=== PATIENT | male | born 1990 | race African-American/Black ===

== ENCOUNTER 2019-08-01 14:17 | Emergency (ER) | payer OTHER, MEDICAID ==
[~2019-08-01] VITALS: Ht 185.4 cm; Wt 102.1 kg
[2019-08-01 14:21] VITALS: BP 122/69
[2019-08-01] MEDS ORDERED: predniSONE 20 MG TABLET PO ONE (14:30)
[2019-08-01] MEDS: IPRATROPIUM NEB FS 0.5 MG/2.5 ML AMPUL.NEB NEB ONE ×2 (14:34→14:36)
[2019-08-01] MEDS: ALBUTEROL FS 2.5 MG/3 ML VIAL.NEB NEB ONE ×2 (14:34→14:36)
[2019-08-01] MEDS ORDERED: ALBUTEROL FS 2.5 MG/3 ML VIAL.NEB ONE (14:38)
[2019-08-01] MEDS ORDERED: IPRATROPIUM NEB FS 0.5 MG/2.5 ML AMPUL.NEB ONE (14:38)
[2019-08-01] MEDS ORDERED: predniSONE 20 MG TABLET ONE (14:43)
--- NOTE | 2019-08-01 14:54 | NUR ---
Patientawake alert non distress Flu swab obtained and send to lab
[2019-08-01 15:05] LABS: BASOPHILS % (AUTO) 0.3 % (0.0-2.0); EOSINOPHILS % (AUTO) 1.5 % (0.0-6.0); HEMATOCRIT 46 % (39-51); LYMPHOCYTES # (AUTO) 1.8 /CMM (0.8-4.8); LYMPHOCYTES % (AUTO) 24.5 % (20.0-44.0); MEAN CORPUSCULAR HGB CONC 33 g/dl (31.0-36.0); MEAN CORPUSCULAR VOLUME 82 fL (80-96); MONOCYTES # (AUTO) 0.5 /CMM (0.1-1.30); MONOCYTES % (AUTO) 6.3 % (2.0-12.0); NEUTROPHILS # (AUTO) 4.9 /CMM (1.8-8.9); NEUTROPHILS % (AUTO) 67.4 % (43.0-81.0); PLATELET COUNT (AUTO) 340 /CMM (150-450); RED BLOOD CELL COUNT(AUTO) 5.55 MIL/uL (4.5-6.0); WHITE BLOOD COUNT (AUTO) 7.3 K/uL (4.3-11.0)
[2019-08-01 15:17] LABS: ALBUMIN 4.3 g/dL (3.4-5.0); BILIRUBIN,DIRECT 0.2 mg/dL (0.0-0.2); BILIRUBIN,TOTAL 0.6 mg/dL (0.2-1.0); POTASSIUM 2.9 mmol/L (3.5-5.1); TOTAL PROTEIN, SERUM 8.4 g/dL (6.4-8.2)
[2019-08-01 15:18] LABS: CALCIUM, SERUM 9.5 mg/dL (8.5-10.1)
[2019-08-01] MEDS ORDERED: POTASSIUM CHLORIDE 20 MEQ TAB.PRT.SR PO ONE ×2 (15:30→15:49)
[2019-08-01] MEDS ORDERED: MAGNESIUM OXIDE 400 MG TABLET PO ONE (16:30)
--- NOTE | 2019-08-01 16:33 | NUR ---
Patient awake alert ok to Booked per Justin SANON
--- NOTE | 2019-08-01 17:05 | NUR ---
Awaiting for Ride to [facility] [place] o\k to booked
== END 2019-08-01 17:54 ==
LOC: ER 14:21
DX: B34.9 Viral infection, unspecified (principal); J45.909 Unspecified asthma, uncomplicated; R19.7 Diarrhea, unspecified; E87.6 Hypokalemia; Z98.890 Other specified postprocedural states
CPT/HCPCS: 36415; 71045; 80048; 80076; 83735; 85025; 87804 ×2; 93005; 94640; 99285; J7512